=== PATIENT | female | born 1955 | race African-American/Black ===

== ENCOUNTER 2019-05-07 22:42 | Emergency (ER) | payer OTHER ==
[~2019-05-07] VITALS: Ht 165.1 cm; Wt 108.9 kg
[2019-05-08] MEDS ORDERED: KETO10TA2 PO (02:04)
== END 2019-05-08 02:11 | disposition home or self-care (01) ==
LOC: ER 22:42
DX: M25.572 Pain in left ankle and joints of left foot (principal); G89.11 Acute pain due to trauma

== ENCOUNTER 2019-05-13 21:11 | Emergency (ER) | payer OTHER ==
[~2019-05-13] VITALS: Ht 165.1 cm; Wt 92.5 kg
[~2019-05-13 21:11] MED LIST: KETO10TA2 PO
== END 2019-05-13 21:56 | disposition home or self-care (01) ==
LOC: ER 21:11
DX: K21.9 Gastro-esophageal reflux disease without esophagitis (principal)

== ENCOUNTER → 2019-05-14 | Emergency (ER) | payer OTHER ==
[~2019-05-14] VITALS: Ht 165.1 cm; Wt 92.5 kg
== END | disposition home or self-care (01) ==
LOC: ER 21:01
DX: K29.60 Other gastritis without bleeding (principal)

== ENCOUNTER 2019-08-15 23:44 | Emergency (ER) | payer OTHER ==
[~2019-08-15] VITALS: Ht 165.1 cm; Wt 92.5 kg
== END 2019-08-16 01:24 | disposition left against medical advice (07) ==
LOC: ER 23:44
DX: C78.7 Secondary malignant neoplasm of liver and intrahepatic bile duct (principal); C78.6 Secondary malignant neoplasm of retroperitoneum and peritoneum; R19.09 Other intra-abdominal and pelvic swelling, mass and lump

== ENCOUNTER 2019-08-25 21:38 | Emergency (ER) | payer OTHER ==
[~2019-08-25] VITALS: Ht 170.2 cm; Wt 72.6 kg
[2019-08-26] MEDS ORDERED: ULTRAM50 MG PO (01:15)
== END 2019-08-26 01:48 | disposition home or self-care (01) ==
LOC: ER 21:38
DX: C78.7 Secondary malignant neoplasm of liver and intrahepatic bile duct (principal); R19.09 Other intra-abdominal and pelvic swelling, mass and lump

== ENCOUNTER → 2019-09-04 | Emergency (ER) | payer OTHER ==
[~2019-09-04] VITALS: Ht 165.1 cm; Wt 92.5 kg
[~2019-09-04] MED LIST changes: +ULTRAM50 MG PO
== END | disposition left against medical advice (07) ==
LOC: ER 21:45
DX: R10.13 Epigastric pain (principal)

== ENCOUNTER 2019-09-25 22:30 | Emergency (ER) | payer OTHER ==
[~2019-09-25] VITALS: Ht 165.1 cm; Wt 92.5 kg
== END 2019-09-26 06:35 | disposition home or self-care (01) ==
LOC: ER 22:30
DX: C22.8 Malignant neoplasm of liver, primary, unspecified as to type (principal); R10.11 Right upper quadrant pain